=== PATIENT | female | born 1985 | race Caucasian/White ===

== ENCOUNTER 2019-08-06 11:38 | Inpatient (IN) | payer OTHER, SELFPAY ==
[2019-08-06] VITALS (11 sets, daily range): BP systolic 107–133; BP diastolic 63–86; PULSE 57–71; RESP 12–18; TEMP 36.6–36.8; O2SAT 99; BMI 34.1
--- NOTE | 2019-08-06 11:55 | WPDOBADMIT ---
Obstetrics - Admit Note Admission Note: 33-year-old 6 para 4014 presents with precipitous vaginal delivery of twin female infants. Presented to labor and delivery with placenta place this delivered without difficulty. She has had no care so she did know that she was . Also admits to a fentanyl use this morning. Additions to the history and/or subsequent changes in the physical findings follow. None.
--- NOTE | 2019-08-06 11:57 | P.PCNOB_ITS ---
OB - Delivery Note Procedure Delivery date: 08/06/19 events: No Care Route of delivery: Laceration description: None Specimen: Yes (placenta) Estimated blood loss (mL): 500 Anesthesia type: None Disposition: floor Narrative: After delivering twins precipitously presented to Labor and delivery for delivery of placenta. Placenta delivered intact. Ultrasound performed with no retained products. Cervix vagina and vulva were inspected and no lacerations or tears at this point seizure was considered terminated. [place] [facility] Weeks of gestation at delivery: 38
[2019-08-06] MEDS: OXYTOCIN 30 UNITS/NS 500 ML 30 UNITS/500 ML BAG 999 UNITS IV CONT (12:00)
[2019-08-06] MEDS: LACTATED RINGERS 1,000 ML 125 ML (12:26)
[2019-08-06 12:27] LABS: Basophils Absolute Auto 0.1 K/mm3 (0.0-0.1); Basophils Percent Auto 0.3 % (0.2-1.2); Eosinophils Percent Auto 0.2 % (0-4.4); Hematocrit 31.8 % (37.0-47.0); Hemoglobin 9.6 g/dL (12.0-15.0); Immature Granulocyte Absolute 0.08 K/mm3 (0.00-0.031); Immature Granulocyte Percent A 0.5 % (0-0.5); Lymphocytes Absolute Auto 1.83 K/mm3 (0.9-3.2); Lymphocytes Percent Auto 11.7 % (18.3-44.2); Mean Corpuscular HGB Conc 30.2 g/dl (32-36); Mean Corpuscular Hemoglobin 24.7 pg (26-34); Mean Corpuscular Volume 81.7 fl (80-100); Mean Platelet Volume 10.3 fl (7.4-10.4); Monocytes Absolute Auto 0.8 K/mm3 (0.1-0.6); Monocytes Percent Auto 4.9 % (2.6-8.5); Neutrophils Absolute Auto 12.9 K/mm3 (1.3-6.7); Neutrophils Percent Auto 82.4 % (45.5-73.1); Platelet Count Result 274 k/mm3 (150-375); Red Blood Count 3.89 M/mm3 (4.2-5.4); White Blood Count 15.6 K/mm3 (4.5-10.0)
[2019-08-06] MEDS: ACETAMINOPHEN 325 MG TABLET 650 MG PO ×2 (13:06→19:28)
[2019-08-06] MEDS: OXYTOCIN 30 UNITS/NS 500 ML 30 UNITS/500 ML BAG 125 UNITS IV CONT (13:10)
[2019-08-06 13:20] LABS: HIV 1/2 Ab P24 Ag Result Negative (Negative); Hepatitis B Surface Antigen Negative (Negative)
[2019-08-06 13:35] LABS: Rubella IgG Antibody 4.4 IU/ML
--- NOTE | 2019-08-06 13:47 | LDADM ---
This patient, Jess Cazares, was admitted to Labor/Delivery/Recovery 106 on 08/06/19 at 11:38. Plans for labor, pain management and were discussed with patient. Patient/family oriented to hospital policies and general routines including ID bracelet, bed and alarms, visiting hours, pain management, procedures, bathroom and other care routines, personal items, smoking policy, room service/diet and guest tray routines, security routines, and visiting hours. Patient/Family are encouraged to report perceived risks to care and to ask questions if they do not understand what they are told or what they should do. See OBIX for further documentation.
[2019-08-06 14:08] LABS: Rapid Plasma Reagin Non-Reactive (NonReactive)
[2019-08-06] MEDS: IBUPROFEN 600 MG TABLET PO ×2 (14:34→20:50)
[2019-08-06 15:10] LABS: Alanine Aminotransferase 17 U/L (4-35); Albumin Level 2.3 g/dL (3.5-5.1); Alkaline Phosphatase 242 U/L (38-126); Aspartate Amino Transferase 36 U/L (14-36); Bilirubin,Total 0.3 mg/dL (0.2-1.3); Blood Urea Nitrogen 10 mg/dL (7-17); Calcium 7.9 mg/dL (8.4-10.2); Carbon Dioxide 20 mmol/L (22-30); Chloride 109 mmol/L (98-107); Estimated CRCL calculation 97 ml/min; Estimated Glomerular Filt Rate > 60; Glucose 93 mg/dL (65-105); Potassium 4.2 mmol/L (3.4-5.0); Sodium 131 mmol/L (137-145)
[2019-08-06 16:07] LABS: Amphetamine Screen Urine Negative (Negative); Barbiturate Screen Urine Negative (Negative); Benzodiazepines Screen Urine Negative (Negative); Cannabinoid Screen Urine Negative (Negative); Cocaine Screen Urine Negative (Negative); Methadone Screen Urine Negative (Negative); Opiate Screen Urine Negative (Negative); Phencyclidine Screen Urine Negative (Negative)
--- NOTE | 2019-08-06 16:31 | PM.OBDSVD ---
OB - DS: Summary OB Procedures : None OB Procedures Intrapartum: Spontaneous Vag Delivery OB Procedures: : None Time Spent with Patient Time attestation: Total time spent providing and/or coordinating discharge services: DS: Data Data Completed and Pending Pending studies at discharge: Pending at discharge 08/06/19 11:47 Surgical [PTH] Routine Labs on day of discharge: Labs from last 24 hours 08/06/19 08/06/19 08/06/19 14:36 13:08 12:16 WBC RBC Hgb Hct MCV MCH MCHC RDW Plt Count MPV Immature Gran % (Auto) Neut % (Auto) Lymph % (Auto) [place] % (Auto) Eos % (Auto) Baso % (Auto) Lymph # (Auto) [place] # (Auto) Eos # (Auto) Baso # (Auto) Abs Immat Gran (auto) Absolute Neuts (auto) Absolute Nucleated RBC Nucleated RBC % Sodium 131 L Potassium 4.2 Chloride 109 H Carbon Dioxide 20 L BUN 10 Creatinine 0.70 Estim Creat Clear Calc 97 Estimated GFR > 60 Glucose 93 Calcium 7.9 L Total Bilirubin 0.3 Direct Bilirubin 0.0 AST 36 ALT 17 Alkaline Phosphatase 242 H Total Protein 6.0 L Albumin 2.3 L Urine Opiates Screen Negative Urine Methadone Screen Negative Ur Barbiturates Screen Negative Ur Phencyclidine Scrn Negative Ur Amphetamine Screen Negative U Benzodiazepines Scrn Negative Urine Cocaine Screen Negative U Cannabinoids Screen Negative RPR Hep Bs Antigen Negative HIV 1&2 Ab/P24 Ag 4thGn Rubella IgG Antibody Blood Type Antibody Screen 08/06/19 08/06/19 08/06/19 12:16 12:16 12:16 WBC RBC Hgb Hct MCV MCH MCHC RDW Plt Count MPV Immature Gran % (Auto) Neut % (Auto) Lymph % (Auto) [place] % (Auto) Eos % (Auto) Baso % (Auto) Lymph # (Auto) [place] # (Auto) Eos # (Auto) Baso # (Auto) Abs Immat Gran (auto) Absolute Neuts (auto) Absolute Nucleated RBC Nucleated RBC % Sodium Potassium Chloride Carbon Dioxide BUN Creatinine Estim Creat Clear Calc Estimated GFR Glucose Calcium Total Bilirubin Direct Bilirubin AST ALT Alkaline Phosphatase Total Protein Albumin Urine Opiates Screen Urine Methadone Screen Ur Barbiturates Screen Ur Phencyclidine Scrn Ur Amphetamine Screen U Benzodiazepines Scrn Urine Cocaine Screen U Cannabinoids Screen RPR Non-reactive Hep Bs Antigen HIV 1&2 Ab/P24 Ag 4thGn Rubella IgG Antibody 4.4 L Blood Type O Positive Antibody Screen Negative 08/06/19 08/06/19 12:16 12:16 WBC 15.6 H RBC 3.89 L Hgb 9.6 L Hct 31.8 L MCV 81.7 MCH 24.7 L MCHC 30.2 L RDW 19.0 H Plt Count 274 MPV 10.3 Immature Gran % (Auto) 0.5 Neut % (Auto) 82.4 H Lymph % (Auto) 11.7 L [place] % (Auto) 4.9 Eos % (Auto) 0.2 Baso % (Auto) 0.3 Lymph # (Auto) 1.83 [place] # (Auto) 0.8 H Eos # (Auto) 0.0 Baso # (Auto) 0.1 Abs Immat Gran (auto) 0.08 H Absolute Neuts (auto) 12.9 H Absolute Nucleated RBC 0.0 Nucleated RBC % 0.0 Sodium Potassium Chloride Carbon Dioxide BUN Creatinine Estim Creat Clear Calc Estimated GFR Glucose Calcium Total Bilirubin Direct Bilirubin AST ALT Alkaline Phosphatase Total Protein Albumin Urine Opiates Screen Urine Methadone Screen Ur Barbiturates Screen Ur Phencyclidine Scrn Ur Amphetamine Screen U Benzodiazepines Scrn Urine Cocaine Screen U Cannabinoids Screen RPR Hep Bs Antigen HIV 1&2 Ab/P24 Ag 4thGn Negative Rubella IgG Antibody Blood Type Antibody Screen Discharge Plan Discharge Discharging Clinician: Phillip Monson Patient Disposition: Home, Self-Care Activity: as tolerated Diet: as tolerated Patient Instructions: Antibiotic Form Stand Alone Forms: General Discha
[2019-08-06] MEDS: LORAZEPAM 0.5 MG TABLET 1 MG PO ×2 (16:55→20:50)
[2019-08-06] MEDS: DICYCLOMINE HCL 10 MG CAPSULE 20 MG PO (17:21)
--- NOTE | 2019-08-06 17:33 | PC.NURSE ---
1600- Spoke with Dr. Monson, patient to not be seen anymore by the hospitalist. Will treat symptoms of withdraw overnight, discharge instructions given for tomorrow morning. Care coordination will also see patient tomorrow morning. Patient is agreeable to this plan.
[2019-08-06] MEDS: POLYSACCHARIDE IRON COMPLEX 150 MG CAPSULE PO (17:44)
--- NOTE | 2019-08-06 18:47 | OBPPTRN ---
Patient transferred to post room #279 via wheelchair, after spontaneous vaginal delivery of twin girls today in route to hospital. Babies have been tranferred to [facility]. Oriented to unit, room, information board, rooming in, admission packet and security measures. Patient verbalizes understanding. Pt states she lives with her father at this time. Pt reports the Father of these babies is incarcerated at this time. pt's VSS and assessment WNL.
[2019-08-06] MEDS: ZOLPIDEM TARTRATE 5 MG TABLET PO (22:16)
[2019-08-07] MEDS: LORAZEPAM 0.5 MG TABLET 1 MG PO ×2 (00:53→07:48)
[2019-08-07] MEDS: ACETAMINOPHEN 325 MG TABLET 650 MG PO (00:53)
--- NOTE | 2019-08-07 05:37 | PC.NURSE ---
0515 Pt refuses ordered lab draw.
[2019-08-07 07:30] VITALS: BP 118/85; PULSE 81; RESP 18; TEMP 37; O2SAT 99
[2019-08-07] MEDS: IBUPROFEN 600 MG TABLET PO (07:45)
[2019-08-07] MEDS: POLYSACCHARIDE IRON COMPLEX 150 MG CAPSULE PO (07:45)
[2019-08-07] MEDS: DOCUSATE SODIUM 100 MG CAPSULE PO (07:45)
--- NOTE | 2019-08-07 07:45 | PC.NURSE ---
Pt. declines vaccinations and refuses to have labs drawn.
[2019-08-07] MEDS: ONDANSETRON INJ 4 MG/2 ML VIAL IV PUSH (07:53)
--- NOTE | 2019-08-07 09:25 | PM.IMCN ---
Assessment and Plan Assessment and plan (1) Fentanyl dependence: Code(s): F11.20 - Opioid dependence, uncomplicated Status: Acute Assessment and Plan: EDITED TO NOTE: Patient departed before recommendations/instructions given Current everyday use with last use on 08/06/19. COWS score of 12 indicating mild withdrawal. - Order Zofran ODT - Continue prn Ativan - Continue prn Zolpidem - Continue Dicyclomine prn abdominal cramps; cramping related to recent delivery vs. opioid withdrawal. Denies further GI symptoms. (2) Twin delivered vaginally: Code(s): O30.009 - Twin , unspecified number of placenta and unspecified number of amniotic sacs, unspecified trimester Status: Acute Assessment and Plan: Vaginal delivery on 08/06/2019 with care and discharge disposition per Dr. Monson. Thank you for allowing me to participate in patient's care. (3) Anxiety: Code(s): F41.9 - Anxiety disorder, unspecified Status: Chronic Assessment and Plan: Currently denies anxiety - Continue prn Ativan HPI Data of Consult Consult date: 08/07/19 Requesting Physician: Phillip Monson MD Primary Care Provider: UNKNOWN,DOCTOR Consult Narrative Narrative: Date of service: 08/07/2019 EDITED TO NOTE: Patient departed before recommendations were given. Jess Cazares is a 33 year old female with a history of anxiety, heroin use, and fentanyl use. She presented to the OB department on 08/06/2019 after delivering twins vaginally in the parking lot of the hospital at approximately 1130. She had used fentanyl on the morning of 08/05. Her mom is present with her today who reports she went to one visit early in the but was unaware she was having twins. No further care. The patient reports she uses fentanyl pills daily, taking 2-3 pills per day, dosage unknown. She has been doing this approximately 4-5 years. She denies IV or transdermal use. Prior to that, she used IV heroin. She does not take other drugs. She does not use alcohol. She reports a history of anxiety for which she previously took xanax and klonopin but no longer uses any medication for anxiety. Her mother reports that she had tried to stop using fentanyl when she became but became so ill that she felt had to continue using. The patient notes she has been in withdrawal several times before, and experienced severe N/V/D and myalgias. She feels that she is about to begin experiencing those symptoms today. She currently denies N/V/D. She is very frustrated and wants to go home. Per discussion with nursing staff, the patient previously requested to stay 2 nights. She reports she is tired of answering questions and will answer yes to all questions so she will be left alone. She does complain of generalized body aches worse in her back and legs, restlessness, diaphoresis, and rhinorrhea. She yawns multiple times during conversation. She denies anxiety currently. She reports abdominal cramping. She denies CP or SOB. She denies lacrimation, piloerection, tremor, palpitations, headaches, or confusion. She reports abdominal pain when sneezing. She did sneeze one time during exam and became tearful afterwards. Her last BM was yesterday. She is urinating without difficulty. Her appetite is good. She is having trouble sleeping. She is having intermittent vaginal bleeding which has lessened since yesterday. Care coordination has been consulted regarding custody of infants. She refused all lab draws today. Review of Systems Review of Systems: Narrative: A 12 point review of systems was reviewed with pertinent positives and negatives as per HPI. [facility] Past Medical History Medical History (Updated 08/07/19 @ 10:17 by Anabel Sánchez PA-C) Anxiety Fentanyl dependence Heroin abuse Surgical History Surgical History (Updated 08/07/19 @ 09:48 by Anabel Sánchez PA-C) Hi
--- NOTE | 2019-08-07 10:00 | PC.NURSE ---
Pt. requesting discharge to home now.
--- NOTE | 2019-08-07 11:02 | PC.NURSE ---
Follow-up appointment scheduled for 3:30 08/07. Pt. states she will probably be with her babies and won't come. Reasons for visit explained and pt. encouraged to call if unable to make appointment.
--- NOTE | 2019-08-07 11:09 | PCCCNOTE ---
Addendum entered by Bella Conway 08/07/19 16:18: 1600: Pt.'s DCFS intake ID is [id number]. At this time, DCFS will not open a new case on pt. Original Note: Care Coordination spoke with pt. over the phone this morning. Pt. states that she used Fentanyl two-four times a day throughout her , she had no care and was therefore unaware that she was having twins. Pt. delivered the twins in her fathers car in the parking lot of [facility]. The twins are at [facility] due to respiratory distress. Pt.'s had low weight. Pt. states that she delivered at 39 weeks but doctors state that she delivered at 35-36 weeks.Pt. lived with her mother throughout her at [address] [facility]. She states that she will stay with her father at [address] [facility]. Pt. states that they do not have the proper supplies for two babies. Her father will assist with obtaining supplies and caring for the children. Pt. has four other children who do not live with her, they live with their father. The twins have a different father who is in [place]. Pt. states when he gets out of [place] he will take an active role in the twins lives and has been very supportive through the . Pt. was provided resources regarding and drug abuse, she states that she is not current with WIC. She has left [facility] AMA.
--- NOTE | 2019-08-09 07:03 | P.DS_ITS ---
DS: Diagnosis Admitting Diagnosis Admitting Diagnosis: Encounter for care and examination of mother immediately af ter delivery OB - DS: Summary OB Procedures : None OB Procedures Intrapartum: Spontaneous Vag Delivery (twin precipitous delivery) OB Procedures: : None Time Spent with Patient Time attestation: Total time spent providing and/or coordinating discharge services: Discharge Plan Discharge Consulting providers: Anabel Sánchez ; Douglas Ramesh Discharging Clinician: Phillip Monson Anticipated Discharge Date/Time: 08/07/19 20:00 Patient Disposition: Home, Self-Care Activity: as tolerated Diet: as tolerated Discharge Instructions: Education: Mom and Baby Guide Given to: Mother Follow-Up: Call your delivering provider's office for an appointment to be seen in: 3 weeks Mom and baby should come to the [facility] for the follow-up appointment. Appointment Date/Time: August 08, 2019 at 3:30 pm What to expect at your follow-up visit: Physical Assessment Call [phone] if you are unable to keep your appointment time. BREAST CARE: 1. Wear a snug supportive bra. 2. For engorgement discomfort: Bottle Feeding: A. May apply ice packs EPISIOTOMY/PERINEAL CARE: 1. Until bleeding stops, use your felicity bottle after urinating 2. Change your pad frequently throughout the day 3. You may take sitz baths several times a day (fill your bathtub with warm water and soak for 20 minutes.) Do NOT bathe in the water 4. No tub baths until seen by your physician - You may shower ACTIVITY: 1. Rest as much as possible. 2. Do not exercise or lift anything heavier than your baby (such as laundry or o ther children.) 3. Avoid stairs or driving as much as possible. 4. Do not put anything into the vagina. No douching, tampons, or sexual activity until seen by physician. NOTIFY PHYSICIAN IF YOU HAVE ANY QUESTIONS OR IF ANY OF THE FOLLOWING SYMPTOMS OCCUR: 1. If your perineum becomes red, swollen, or more painful than what you have experienced in the hospital. 2. If your vaginal bleeding becomes foul smelling. 3. If your vaginal bleeding becomes more heavy than a period or if your bleeding changes from pink to bright red. However, you may pass an occasional walnut- sized clot once or twice for the first week . 4. If you experience a sharp, shooting pain in you calves. 5. If you discover a hard, reddened area on your breast or if you experience flu-like symptoms. DIET: 1. Eat regular, well-balanced meals. 2. Drink plenty of fluids daily. If , drink to thirst. Stand Alone Forms: General Discharge Information Follow-up/Referrals: Phillip Monson MD [Physician] - 3 Weeks Discharge Medications: No Action No Home Medications RF: 0 Date of admission: 08/06/19 11:38 Primary Care Provider: UNKNOWN,DOCTOR Admitting Provider: Phillip Monson Discharge Date/Time: 08/07/19 10:45 Attending physician on admission: Phillip Monson
== END 2019-08-07 10:45 | disposition home or self-care (01) | DRG 561 ==
LOC: ANHLDR 16:36 → ANHOB2 17:31
PROVIDERS: Admitting Provider Obstetrics & Gynecology; Visit Provider Obstetrics & Gynecology
DX: Z39.0 Encounter for care and examination of mother immediately after delivery (principal); O99.325 Drug use complicating the puerperium; F11.20 Opioid dependence, uncomplicated; O99.345 Other mental disorders complicating the puerperium; F41.9 Anxiety disorder, unspecified
CPT/HCPCS: 36415; 59414; 80053; 80307; 82248; 85025; 86592; 86703; 86762; 86850; 86900; 86901; 87340; A9270; G0432; J2405; J2590; J7120